=== PATIENT | male | born 1965 | race Hispanic/Latino ===

== ENCOUNTER 2023-06-10 19:09 | Emergency (ER) | payer BC ==
[~2023-06-10] VITALS: Ht 172.7 cm; Wt 105.2 kg
[2023-06-10] MEDS ORDERED: ONDANSETRON HCL INJ 2MG/ML 2ML 2 MG/ML VIAL ONE (19:44)
[2023-06-10] MEDS ORDERED: IBUPROFEN 400 MG TAB ONE (19:44)
[2023-06-10] MEDS ORDERED: SODIUM CHLORIDE 0.9% 1000ML 1,000 ML ONE (19:44)
[2023-06-10 19:50] LABS: BASOPHILS # (AUTO) 0.1 (0.0-0.1); BASOPHILS % 0.6 % (0.0-1.0); EOSINOPHILS # (AUTO) 0.2 (0.0-0.4); EOSINOPHILS % 1.8 % (0.0-6.0); HEMATOCRIT 39.6 % (38.2-49.6); LYMPHOCYTES # (AUTO) 0.9 (1.0-3.2); LYMPHOCYTES % 9.2 % (18.0-39.1); MEAN CORPUSCULAR HEMOGLOBIN 27.7 pg (28-32); MEAN CORPUSCULAR HGB CONC 32.8 g/dL (31-35); MEAN CORPUSCULAR VOLUME 84.4 fL (81-99); MONOCYTES # (AUTO) 0.9 (0.2-0.8); MONOCYTES % 9.7 % (4.4-11.3); NEUTROPHILS # (AUTO) 7.4 (2.1-6.9); NEUTROPHILS % 78.2 % (38.7-80.0); PLATELET COUNT 219 x10e3/uL (140-360); RED BLOOD COUNT 4.69 x10e6/uL (4.3-5.7); RED CELL DISTRIBUTION WIDTH 12.6 % (11.7-14.4); WHITE BLOOD COUNT 9.46 x10e3/uL (4.8-10.8)
[2023-06-10 20:07] LABS: ALANINE AMINOTRANSFERASE 55 IU/L (0-55); ALBUMIN 3.7 g/dL (3.5-5.0); ALBUMIN/GLOBULIN RATIO 1.4 (0.8-2.0); ALKALINE PHOSPHATASE 44 IU/L (40-150); ANION GAP 15.3 mmol/L (8-16); BILIRUBIN,TOTAL 0.6 mg/dL (0.2-1.2); BLOOD UREA NITROGEN 11 mg/dL (7-26); BUN/CREATININE RATIO 13 (6-25); CALCIUM 8.5 mg/dL (8.4-10.2); CARBON DIOXIDE 22 mmol/L (22-29); CHLORIDE 103 mmol/L (98-107); CREATINE KINASE 203 IU/L (30-200); CREATININE, SERUM 0.86 mg/dL (0.72-1.25); EST GLOMERULAR FILTRATION RATE 99 ML/MIN (>=60); GLUCOSE 135 mg/dL (74-118); SODIUM 137 mmol/L (136-145); TOTAL PROTEIN 6.4 g/dL (6.5-8.1)
[2023-06-10] MEDS: SODIUM CHLORIDE 0.9% 1000ML 1,000 ML IV ONE (20:08)
[2023-06-10] MEDS: ONDANSETRON HCL INJ 2MG/ML 2ML 2 MG/ML VIAL IV STA (20:09)
[2023-06-10] MEDS: IBUPROFEN 400 MG TAB PO ONE (20:09)
[2023-06-10 20:11] LABS: POTASSIUM 3.3 mmol/L (3.5-5.1)
[2023-06-10 20:16] LABS: TROPONIN I < 0.001 ng/mL (0-0.300)
[2023-06-10] MEDS ORDERED: METHYLPREDNISOLONE SOD SUCC 125 MG/2ML VIAL IV STA (20:16)
[2023-06-10 20:33] VITALS: PULSE 108; RESP 20; O2SAT 97
[2023-06-10] MEDS: ALBUTEROL/IPRATROPIUM 3 ML NEB NEB STA (20:37)
[2023-06-10] MEDS ORDERED: PREDNISONE20 MG PO (21:05)
[2023-06-10] MEDS ORDERED: VENTOLIN HFA18 GM INH (21:05)
[2023-06-10] MEDS ORDERED: PAXLOVID 300-11 EAC1 PO (21:05)
[2023-06-10 21:46] VITALS: BP 123/75; PULSE 110; RESP 20; O2SAT 100
== END 2023-06-10 21:38 | disposition home or self-care (01) ==
LOC: ER 19:13
DX: R50.9 Fever, unspecified (principal); U07.1 COVID-19; R05.9 Cough, unspecified; R51.9 Headache, unspecified
CPT/HCPCS: 36415; 71045; 80053; 82550; 83690; 83880; 84484; 85025; 87400; 87420; 93005; 94640; 94799; 99284; J2405; J7030; U0002